=== PATIENT | female | born 1945 | race Caucasian/White ===

== ENCOUNTER 2017-10-20 08:33 | Inpatient (IN) | payer OTHER, MEDICARE ==
[2017-10-20] VITALS (7 sets, daily range): BP systolic 154–194; BP diastolic 72–113; PULSE 75–92; RESP 16–20; TEMP 97.3–98.2; O2SAT 97–100
[~2017-10-20] VITALS: Ht 157.5 cm; Wt 64.8 kg
--- NOTE | 2017-10-20 09:04 | PD ---
HPI Chief Complaint: Psychiatric Symptoms Time Seen by Provider: 09:01 Travel History International Travel<30 days: No Contact w/Intl Traveler<30days: No History of Present Illness HPI Patient 71-year-old female cabazon Liberian speaker does speak some Tuvaluan presents emergency department under Wong act. She is crying during exam and has some abrasions noted on her wrist. Patient does speak some Tuvaluan and I have attempted to communicate with her in Liberian as well and she switch back to Tuvaluan, she seems to not be willing to provide much history, she is crying on exam and states that she is feeling very sad and depressed and suicidal. She denies any physical complaints today, he has obvious abrasions noted on risk consistent with self injury pattern. History somewhat limited by language barrier and patient cooperation. She denied any pain anywhere else on her body. [facility] Past Medical History Narrative Medical Hypertension, headache, hypercholesterolemia, diabetes which is diet-controlled peer Past Surgical History Narrative Surgical Cholecystectomy Social History Alcohol Use: No Tobacco Use: No Substance Use: No Allergies-Medications (Allergen,Severity, Reaction): Coded Allergies: No Known Allergies (Unverified , 10/20/17) Reported Meds & Prescriptions Reported Meds & Active Scripts Active Reported Atorvastatin (Atorvastatin Calcium) 20 Mg Tab 20 Mg PO HS Lisinopril 20 Mg Tab 20 Mg PO DAILY Review of Systems Except as stated in HPI: all other systems reviewed are Neg Physical Exam Narrative GENERAL: Well-developed well-nourished, crying nontoxic appearing SKIN: Focused skin assessment warm/dry. Patient has serial superficial excoriations to the volar aspect of both wrists, no other abrasions lacerations or bruising seen on her person. HEAD: Atraumatic. Normocephalic. EYES: Pupils equal and round. No scleral icterus. No injection or drainage. ENT: No nasal bleeding or discharge. Mucous membranes pink and moist. NECK: Trachea midline. No JVD. CARDIOVASCULAR: Regular rate and rhythm. No murmur appreciated. RESPIRATORY: No accessory muscle use. Clear to auscultation. Breath sounds equal bilaterally. GASTROINTESTINAL: Abdomen soft, non-tender, nondistended. Hepatic and splenic margins not palpable. MUSCULOSKELETAL: No obvious deformities. No clubbing. No cyanosis. No edema. NEUROLOGICAL: Awake and alert. No obvious cranial nerve deficits. Motor grossly within normal limits. Normal speech. PSYCHIATRIC: Withdrawn, depressed mood, endorses suicidal ideation. Data Data Last Documented VS Vital Signs Date Time Temp Pulse Resp B/P (MAP) Pulse Ox O2 Delivery O2 Flow Rate FiO2 10/20/17 10:17 98.2 92 18 194/87 (122) 98 Room Air Orders Orders Complete Blood Count With Diff (10/20/17 09:01) Comprehensive Metabolic Panel (10/20/17 09:01) Thyroid Stimulating Hormone (10/20/17 09:01) Urinalysis - C+S If Indicated (10/20/17 09:01) Psych Screen (10/20/17 09:01) Drug Screen, Random Urine (10/20/17 09:01) Alcohol (Ethanol) (10/20/17 09:01) Tetanus/Diphtheria Tox Adult (Tetanus/Di (10/20/17 09:15) Diet Regular Basic (10/20/17 Lunch) Admit Order (Ed Use Only) (10/20/17 ) ^ Other Nursing Orders (10/20/17 13:36) Atorvastatin (Lipitor) (10/20/17 21:00) Lisinopril (Prinivil) (10/21/17 09:00) Labs Laboratory Tests Test 10/20/17 09:11 10/20/17 11:30 White Blood Count 6.1 TH/MM3 Red Blood Count 4.78 MIL/MM3 Hemoglobin 14.2 GM/DL Hematocrit 41.8 % Mean Corpuscular Volume 87.3 FL Mean Corpuscular Hemoglobin 29.7 PG Mean Corpuscular Hemoglobin Concent 34.1 % Red Cell Distribution Width 13.8 % Platelet Count 266 TH/MM3 Mean Platelet Volume 7.8 FL Neutrophils (%) (Auto) 76.2 % Lymphocytes (%) (Auto) 16.9 % Monocytes (%) (Auto) 5.9 % Eosinophils (%) (Auto) 0.7 % Basophils (%) (Auto) 0.3 % Neutrophils # (Auto) 4.6 TH/MM3 Lymphocytes # (Auto) 1.0 TH/MM3 Monocytes # (Auto) 0.4 TH/MM3 Eosinophils # (Auto) 0.0 TH/MM3 Basophils # (Auto) 0.0 TH/MM3 CBC Comment DIFF FINAL Differential Comment Blood Urea Nitrogen 11 MG/DL Creatinine 0.75 MG/DL Random Glucose 121 MG/DL Total Protein 8.9 GM/DL Albumin 4.2 GM/DL Calcium Level 9.8 MG/DL Alkaline Phosphatase 116 U/L Aspartate Amino Transf (AST/SGOT) 20 U/L Alanine Aminotransferase (ALT/SGPT) 34 U/L Total Bilirubin 0.4 MG/DL Sodium Level 136 MEQ/L Potassium Level 4.2 MEQ/L Chloride Level 99 MEQ/L Carbon Dioxide Level 29.5 MEQ/L Anion Gap 8 MEQ/L Estimat Glomerular Filtration Rate 76 ML/MIN Thyroid Stimulating Hormone 3rd Gen 0.638 uIU/ML Ethyl Alcohol Level LESS THAN 3 MG/DL Urine Color YELLOW Urine Turbidity CLEAR Urine pH 7.0 Urine Specific [place] 1.014 Urine Protein NEG mg/dL Urine Glucose (UA) NEG mg/dL Urine Ketones NEG mg/dL Urine Occult Blood SMALL Urine Nitrite NEG Urine Bilirubin NEG Urine Urobilinogen LESS THAN 2.0 MG/DL Urine Leukocyte Esterase NEG Urine RBC 11 /hpf Urine WBC 2 /hpf Urine Squamous Epithelial Cells 1 /hpf Microscopic Urinalysis Comment CULT NOT INDICATED Urine Opiates Screen NEG Urine Barbiturates Screen NEG Urine Amphetamines Screen NEG Urine Benzodiazepines Screen NEG Urine Cocaine Screen NEG Urine Cannabinoids Screen NEG MDM Medical Decision Making Medical Screen Exam Complete: Yes Emergency Medical Condition: Yes Differential Diagnosis Suicidal ideation, self-injurious pattern, acute medical emergency highly unlikely peer Narrative Course Patient medically cleared for psychiatric evaluation, likely will require admission. While she is in the emergency department I will continue to follow to see if her UA is positive, Given the Wong act and the patient's affect I think it is very likely that she needs to be admitted to the hospital, this was discussed with psychiatric screener Hannah. Likely will be placed in 2600. Her basic labs been reviewed and negative, UA does show small amount of hematuria which can be worked up as an outpatient. Otherwise she is medically stable for psychiatric admission. Diagnosis Primary Impression: Adjustment disorder with mixed disturbance of emotions and conduct Admitting Information Admitting Physician Requests: Admit Condition: Stable Víctor Llamas MD October 20, 2017 09:04
[2017-10-20] MEDS ORDERED: TETANUS/DIPHTHERIA TOXOID ADULT 0.5 ML VIAL IM ONE (09:15)
[2017-10-20] MEDS ORDERED: LISI-515 PO (11:02)
[2017-10-20 11:16] LABS: AUTOMATED NEUTROPHIL # 4.6 TH/MM3 (1.8-7.7); BASOPHIL % 0.3 % (0.0-2.0); EOSINOPHIL % 0.7 % (0.0-4.0); HEMATOCRIT 41.8 % (35.0-46.0); HEMOGLOBIN 14.2 GM/DL (11.6-15.3); LYMPH % 16.9 % (9.0-44.0); MEAN CELL VOLUME 87.3 FL (80.0-100.0); MEAN CORPUSCULAR HEMOGLOBIN 29.7 PG (27.0-34.0); MEAN CORPUSCULAR HGB CONC 34.1 % (32.0-36.0); MEAN PLATELET VOLUME 7.8 FL (7.0-11.0); MONO % 5.9 % (0.0-8.0); MONOCYTE # 0.4 TH/MM3 (0-0.9); NEUT % 76.2 % (16.0-70.0); PLATELET COUNT 266 TH/MM3 (150-450); RED BLOOD COUNT 4.78 MIL/MM3 (4.00-5.30); RED CELL DISTRIBUTION WIDTH 13.8 % (11.6-17.2); WHITE BLOOD COUNT 6.1 TH/MM3 (4.0-11.0)
[2017-10-20 11:37] LABS: ALBUMIN 4.2 GM/DL (3.4-5.0); AST (GOT) 20 U/L (15-37); BICARBONATE 29.5 MEQ/L (21.0-32.0); BLOOD UREA NITROGEN 11 MG/DL (7-18); CALCIUM 9.8 MG/DL (8.5-10.1); CHLORIDE 99 MEQ/L (98-107); CREATININE 0.75 MG/DL (0.50-1.00); GLOMERULAR FILTRATION RATE 76 ML/MIN (>89); GLUCOSE,RANDOM 121 MG/DL (74-106); SODIUM (NA) 136 MEQ/L (136-145)
[2017-10-20 11:38] LABS: ALT (GPT) 34 U/L (10-53)
[2017-10-20 11:47] LABS: ALKALINE PHOSPHATASE 116 U/L (45-117); TOTAL BILIRUBIN ADULT 0.4 MG/DL (0.2-1.0); TOTAL PROTEIN 8.9 GM/DL (6.4-8.2)
[2017-10-20 12:28] LABS: BILIRUBIN, URINE NEG (NEG); BLOOD, URINE SMALL (NEG); GLUCOSE,URINE NEG (NEG); KETONE, URINE NEG (NEG); NITRITE,URINE NEG (NEG); SQUAMOUS EPITHELIAL CELL URINE 1 /hpf (0-5); URINE COLOR YELLOW (YELLW/STRAW); URINE LEUKOCYTE ESTERASE NEG (NEG)
[2017-10-20] MEDS ORDERED: ATOR20TA15 PO (13:10)
[2017-10-20] MEDS ORDERED: METH2.5T PO (13:15)
--- NOTE | 2017-10-20 13:51 | HHI.HP ---
Provisional Diagnosis Admission Date October 20, 2017 at 13:37 [place]. 1. Adjustment disorder with mixed disturbance of emotions and conduct [place]. Deferred Certification of Person's Competence To Provide Express and Informed Consent I have personally examined Connie Jones , a person being served at [facility] on, October 20, 2017 13:41. Express and informed consent means consent voluntarily given in writing, by a competent person, after sufficient explanation and disclosure of the subject matter involved to enable the person to make a knowing and willful decision without any element of force, fraud, deceit, duress, or other form of constraint or coercion. This person is 18 years of age or older, is not now known to be incompetent to consent to treatment with a guardian advocate, and does not have a health care surrogate or proxy currently making medical treatment decisions. I have found this person to be one of the following: [x] Competent to provide express and informed consent, as defined above, for voluntary admission to this facility and is competent to provide express and informed consent for treatment. He/she has the consistent capacity to make well reasoned, willful, and knowing decisions concerning his or her medical or mental health treatment. The person fully and consistently understands the purpose of the admission for examination/placement and is fully capable of personally exercising all rights assured [place] Incompetent to provide express and informed consent to voluntary admission, and this is incompetent to provide express and informed consent to treatment. The person must be transferred to involuntary status and a petition for a guardian advocate filed with the Circuit Court. [] Refusing to provide express and informed consent to voluntary admission but is competent to provide express and informed consent for treatment. The person must be discharged or transferred to involuntary status. Form shall be completed within 24 hours of a person's arrival at the receiving facility and filed in the clinical record of each person: 1. Admitted on a voluntary basis 2. Permitted to provide express and informed consent to his/her own treatment 3. Allowed to transfer from involuntary to voluntary status 4. Prior to permitting a person to consent to his or her own treatment after having been previously found incompetent to consent to treatment. History of Present Illness Capacity: Has Capacity Psych Chief Complaint: Self-injurious behavior HPI Ms. Jones is a 71-year-old female with no known past psychiatric history who presents under a Wong act by [facility]'s office alleging that the patient sustained self-inflicted lacerations on her bilateral wrists. Patient allegedly told the officer that she wanted to . Reviewing the electronic medical record, it appears this is patient's first visit to [facility]. Patient seen and examined. Chart reviewed. Case discussed with nursing staff. On my examination today, the patient relates that she self injured because "I wanted to ." Main stressor appears to be conflict with her [id number]. Apparently, some youthful indiscretion by the patient was discovered by [id number] who has been using it against the patient by spreading it amongst the family. Patient denies any ongoing suicidal ideation presently, although it is unclear whether she is reliable to contract for safety. She denies any low mood, denies any anhedonia, denies any associated depressive symptoms except she does say that her sleep and appetite are poor. Affect is somewhat dysphoric, and I wonder if the patient is under reporting symptoms. I can elicit no hypomanic or manic symptoms. She denies any audiovisual hallucinations, and I can elicit no delusional material. Remainder of the psychiatric ROS is negative. No acute physical complaints. Past psychiatric history: Patient denies a history of psychiatric diagnosis. She denies a history of inpatient or outpatient psychiatric treatment. She denies a history of suicide attempts. Family history: Patient denies any family history of mental illness or suicide. Chemical dependency history: Patient denies any abuse of drugs or alcohol. Social history: Patient lives with her . She has a son and grandchildren. She has 8 grade education. 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 She denies any history. Denies any legal history. Denies any access to guns or firearms. Somewhat spiritism. Denies any history of abuse or mistreatment. Review of Systems Except as stated in HPI: all other systems reviewed are Neg Past Family Social History Coded Allergies: No Known Allergies (Unverified , 10/20/17) Past Medical History Patient reports a history of rheumatoid arthritis, hypertension and seasonal allergies Reported Medications Atorvastatin (Atorvastatin) 20 Mg Tab, 20 MG PO HS for Cholesterol Management, # 30 TAB 0 Refills 10/20/17 Lisinopril (Lisinopril) 20 Mg Tab, 20 MG PO DAILY, #30 TAB 0 Refills 10/20/17 Discontinued Reported Medications Methotrexate (Methotrexate) 2.5 Mg Tab, 2.5 MG PO Q7D, TAB 0 Refills 10/20/17 Nurse has obtained medication list from patient's pharmacy. Patient takes: Methotrexate 15 mg once weekly on Mondays, last one week ago Lisinopril 20 mg daily Atorvastatin 20 mg at bedtime Patient's Strengths (min. 2) In a monitored setting. Verbally fluent. Physical Exam Physical examination completed by ED provider. On my examination today, the patient appears to be in no acute physical distress. No motor abnormalities noted. I do note multiple superficial lacerations on anterior aspect bilateral wrists as well as further superficial lacerations on the dorsum of the right hand only. Labs and vital signs reviewed: Vital Signs Vital Signs Date Time Temp Pulse Resp B/P (MAP) Pulse Ox O2 Delivery O2 Flow Rate FiO2 10/20/17 10:17 98.2 92 18 194/87 (122) 98 Room Air I/O 10/20/17 10/20/17 10/21/17 08:00 16:00 00:00 Intake Total 240 ml Balance 240 ml Lab Results Test 10/20/17 09:11 10/20/17 11:30 White Blood Count 6.1 TH/MM3 Red Blood Count 4.78 MIL/MM3 Hemoglobin 14.2 GM/DL Hematocrit 41.8 % Mean Corpuscular Volume 87.3 FL Mean Corpuscular Hemoglobin 29.7 PG Mean Corpuscular Hemoglobin Concent 34.1 % Red Cell Distribution Width 13.8 % Platelet Count 266 TH/MM3 Mean Platelet Volume 7.8 FL Neutrophils (%) (Auto) 76.2 % Lymphocytes (%) (Auto) 16.9 % Monocytes (%) (Auto) 5.9 % Eosinophils (%) (Auto) 0.7 % Basophils (%) (Auto) 0.3 % Neutrophils # (Auto) 4.6 TH/MM3 Lymphocytes # (Auto) 1.0 TH/MM3 Monocytes # (Auto) 0.4 TH/MM3 Eosinophils # (Auto) 0.0 TH/MM3 Basophils # (Auto) 0.0 TH/MM3 CBC Comment DIFF FINAL Differential Comment Blood Urea Nitrogen 11 MG/DL Creatinine 0.75 MG/DL Random Glucose 121 MG/DL Total Protein 8.9 GM/DL Albumin 4.2 GM/DL Calcium Level 9.8 MG/DL Alkaline Phosphatase 116 U/L Aspartate Amino Transf (AST/SGOT) 20 U/L Alanine Aminotransferase (ALT/SGPT) 34 U/L Total Bilirubin 0.4 MG/DL Sodium Level 136 MEQ/L Potassium Level 4.2 MEQ/L Chloride Level 99 MEQ/L Carbon Dioxide Level 29.5 MEQ/L Anion Gap 8 MEQ/L Estimat Glomerular Filtration Rate 76 ML/MIN Thyroid Stimulating Hormone 3rd Gen 0.638 uIU/ML Ethyl Alcohol Level LESS THAN 3 MG/DL Urine Color YELLOW Urine Turbidity CLEAR Urine pH 7.0 Urine Specific [place] 1.014 Urine Protein NEG mg/dL Urine Glucose (UA) NEG mg/dL Urine Ketones NEG mg/dL Urine Occult Blood SMALL Urine Nitrite NEG Urine Bilirubin NEG Urine Urobilinogen LESS THAN 2.0 MG/DL Urine Leukocyte Esterase NEG Urine RBC 11 /hpf Urine WBC 2 /hpf Urine Squamous Epithelial Cells 1 /hpf Microscopic Urinalysis Comment CULT NOT INDICATED Urine Opiates Screen NEG Urine Barbiturates Screen NEG Urine Amphetamines Screen NEG Urine Benzodiazepines Screen NEG Urine Cocaine Screen NEG Urine Cannabinoids Screen NEG Mildly decreased GFR noted. Urinalysis bland. Mental Status Examination Appearance: Appropriate Consciousness: Alert Orientation: x4 Motor Activity: Normal gait Speech: Unremarkable Language: Adequate Fund of Knowledge: Adequate Attention and Concentration: Adequate Memory: Unremarkable Mood: Other (Denies issues with mood) Affect: Other (Somewhat dysphoric) Thought Process & Associations: Intact, Logical, Linear Thought Content: Appropriate Hallucination Type: None Delusion Type: None Suicidal Ideation: No (Denies SI now but admits to recent suicidal self injury) Suicidal Plan: No Suicidal Intention: No Homicidal Ideation: No Homicidal Plan: No Homicidal Intention: No Insight: Fair Judgment: Impulsive Assessment & Plan Problem List: (1) Adjustment disorder with mixed disturbance of emotions and conduct ICD Codes: F43.25 - Adjustment disorder with mixed disturbance of emotions and conduct Assessment & Plan 71-year-old female with no known past psychiatric history who presents under a Wong act by law enforcement after engaging in suicidal self-injurious behavior. On my examination today, the patient reports that she cut herself with the intent to because of conflict with her [id number]. She denies depressive symptoms besides poor sleep and poor appetite, but I do fear that she is under reporting the symptoms. Patient is unreliable to contract for safety presently in my estimation, and I will admit her to the inpatient psychiatric unit for safety, observation and stabilization. Admit inpatient. Voluntary status. To target poor sleep, poor appetite and dysphoria initiate Remeron 15 mg at bedtime. Low-dose Atarax and Benadryl as needed for anxiety and sleep respectively. Continue methotrexate, statin and lisinopril. Blood pressure is somewhat elevated and I have ordered her a one- time dose of lisinopril now. BMP, hemoglobin A1c and lipid panel in the morning. Vitals every shift. Counselor to see. Collateral information. Disposition planning. Estimated length of stay: 3-5 days. Discharge Planning Pending outcome of observation Request HC Surrog/Guard Advoc?: No Sawyer Ohara MD October 20, 2017 13:51
[2017-10-20] MEDS ORDERED: MAGNESIUM HYDROXIDE SUSP 30 ML CUP PO PRN (14:00)
[2017-10-20] MEDS ORDERED: LISINOPRIL 20 MG TAB PO ONE (14:00)
[2017-10-20] MEDS ORDERED: NICOTINE 21 MG/24 HR PATCH T-DERMAL PRN (14:00)
[2017-10-20] MEDS ORDERED: ALUMINUM/MAGNESIUM/SIMETH 30 ML CUP PO PRN (14:00)
[2017-10-20] MEDS ORDERED: PILL SPLITTER OTHER PRN (14:00)
[2017-10-20] MEDS ORDERED: hydrOXYzine HCL 50 MG TAB PO PRN (14:00)
[2017-10-20] MEDS: BACITRACIN TOP OINT 15 GM TUBE TOPICAL SCH (21:00)
[2017-10-20] MEDS: MIRTAZAPINE 15 MG TAB PO SCH (21:05)
[2017-10-20] MEDS: ATORVASTATIN 20 MG TAB PO SCH (21:05)
[2017-10-20] MEDS: METHOTREXATE 2.5 MG TAB PO SCH (21:16)
[2017-10-20] MEDS: cloNIDine HCL 0.1 MG TAB PO PRN (23:29)
[2017-10-21 02:31] VITALS: BP 138/69; PULSE 63; RESP 18; TEMP 97.7; O2SAT 99
[2017-10-21 06:07] VITALS: BP 100/52; PULSE 61; RESP 16; TEMP 98.3; O2SAT 99
[2017-10-21 07:14] VITALS: BP 156/70; PULSE 95; RESP 20
[2017-10-21] MEDS: LISINOPRIL 20 MG TAB PO SCH (09:00)
[2017-10-21] MEDS: REMOVE OLD PATCH T-DERMAL SCH (09:00)
[2017-10-21] MEDS: BACITRACIN TOP OINT 15 GM TUBE TOPICAL SCH ×2 (09:00→21:00)
[2017-10-21] MEDS: ACETAMINOPHEN 325 MG TAB PO PRN ×2 (10:31→22:05)
[2017-10-21 11:00] VITALS: BP 109/53; PULSE 62; RESP 17
[2017-10-21 16:17] VITALS: BP 108/68; PULSE 86; RESP 18; TEMP 98.7; O2SAT 99
--- NOTE | 2017-10-21 18:43 | HHI.PYPN ---
Subjective Chief Complaint: Self-injurious behavior Remarks Patient seen for follow-up, chart reviewed.. Discussion nursing staff reported the patient was hostile yesterday fell twice today with no apparent injuries, mood has been better compliant with medications. Patient was found sitting hospital bed noted be somewhat irritable and superficially cooperative initially but began to be more engaging throughout interview. Patient states that she had been feeling depressed for the past 1-2 months due to family issues but would not elaborate at this time. Patient was noted to be tearful and crying at times during interview when speaking about this. Patient states that she had been having also decreased sleep, appetite, energy and concentration along with suicide ideation at the moment which she had attempted to hurt herself. Patient states that "something happened" referral to her family discord. She states on the day of she had injured herself and her to call police after she had found her having done this. Patient states that she had been having problems with her [id number] but would not elaborate further. Patient states at this time she is feeling "bad" denies any SI at this time, denies any HI, AVH or delusions. She states that she has had a history of depression in the past and has been on antidepressant and anxiety medications but was unable to recall them. She denies any previous psychiatric admissions or suicide attempts or self-injurious behavior previously. Review of Systems Except as stated in HPI: all other systems reviewed are Neg Mental Status Examination Appearance: Appropriate Consciousness: Alert Orientation: x4 Motor Activity: Normal gait Speech: Unremarkable Language: Adequate Fund of Knowledge: Adequate Attention and Concentration: Adequate Memory: Unremarkable Mood: Sad Affect: Sad, Other (Tearful and crying at times) Thought Process & Associations: Intact, Logical, Linear Thought Content: Appropriate Hallucination Type: None Delusion Type: None Suicidal Ideation: No (Denies SI now but admits to recent suicidal self injury) Suicidal Plan: No Suicidal Intention: No Homicidal Ideation: No Homicidal Plan: No Homicidal Intention: No Insight: Fair Judgment: Impulsive Results Vitals/IOs Vital Signs Date Time Temp Pulse Resp B/P (MAP) Pulse Ox O2 Delivery O2 Flow Rate FiO2 10/21/17 16:17 98.7 86 18 108/68 (81) 99 10/20/17 16:30 Room Air Intake and Output 10/21/17 10/21/17 10/22/17 08:00 16:00 00:00 Intake Total 240 ml 240 ml Balance 240 ml 240 ml Assessment & Plan Problem List: (1) Adjustment disorder with mixed disturbance of emotions and conduct ICD Codes: F43.25 - Adjustment disorder with mixed disturbance of emotions and conduct Assessment & Plan Patient this time continues her to endorse depressive symptoms, depressed mood but denying any suicide ideation at this time. Patient to continue Remeron 15 mg p.o. at bedtime for depression, we will continue monitor mood and behavior. Discharge planning in progress. Justification for Cont. Inpt. At risk of further decompensation a lower level of care. Discharge Planning Patient return back to her residence was psychiatrically stable. Request HC Surrog/Guard Advoc?: No Chase Castano MD October 21, 2017 18:43
[2017-10-21] MEDS: ATORVASTATIN 20 MG TAB PO SCH (21:58)
[2017-10-21] MEDS: MIRTAZAPINE 15 MG TAB PO SCH (21:58)
[2017-10-22 06:37] VITALS: BP 126/55; PULSE 61; RESP 17; TEMP 97.6; O2SAT 99
[2017-10-22] MEDS: LISINOPRIL 20 MG TAB PO SCH (08:48)
[2017-10-22] MEDS: REMOVE OLD PATCH T-DERMAL SCH (09:00)
[2017-10-22] MEDS: BACITRACIN TOP OINT 15 GM TUBE TOPICAL SCH ×2 (09:00→20:28)
--- NOTE | 2017-10-22 17:45 | HHI.PYPN ---
Subjective Chief Complaint: Self-injurious behavior Remarks Patient seen for follow, chart reviewed. Discussion nursing staff reported patient anxious about her clothing and was noted to have overwhelming reaction when worried about this. Patient was found in day room noted B, cooperative. Patient states that she had visited by granddaughter which was a general visit but did not speak about anything specific. Patient reports having difficulty with sleep last evening but was reminded that she has medications on an as- needed basis to assist with insomnia which she acknowledged. Patient reports eating and drinking well with no difficulty or bowel movement. Patient states that her mood has been "bad" but would not elaborate on the reasons that had led to her recent suicide attempt. Patient was encouraged to elaborate on the reason that had contributed to her ongoing depression recently. Patient states that she is okay with being home with her although triggering factor to her recent suicide attempt was involving other family members which she did not want to elaborate on. Patient states that she will be visited by her later today. Patient noted to be somewhat reluctant to engage into the reasons that led to her suicide attempt. Patient noted to be tearful at times. Review of Systems Except as stated in HPI: all other systems reviewed are Neg Mental Status Examination Appearance: Appropriate Consciousness: Alert Orientation: x4 Motor Activity: Normal gait Speech: Unremarkable Language: Adequate Fund of Knowledge: Adequate Attention and Concentration: Adequate Memory: Unremarkable Mood: Sad Affect: Sad, Other (Tearful at times) Thought Process & Associations: Intact, Logical, Linear Thought Content: Appropriate Hallucination Type: None Delusion Type: None Suicidal Ideation: No (Denies SI now but admits to recent suicidal self injury) Suicidal Plan: No Suicidal Intention: No Homicidal Ideation: No Homicidal Plan: No Homicidal Intention: No Insight: Fair Judgment: Impulsive Results Vitals/IOs Vital Signs Date Time Temp Pulse Resp B/P (MAP) Pulse Ox O2 Delivery O2 Flow Rate FiO2 10/22/17 06:37 97.6 61 17 126/55 (78) 99 10/20/17 16:30 Room Air Assessment & Plan Problem List: (1) Adjustment disorder with mixed disturbance of emotions and conduct ICD Codes: F43.25 - Adjustment disorder with mixed disturbance of emotions and conduct Assessment & Plan Patient this time continues report feeling depressed, reluctant to engage in to what had led to her suicide attempt. Patient reported difficulty with sleep but has as needed medications to assist with that. We will increase mirtazapine to 30 mg p.o. at bedtime for depression. We will continue monitor mood and behavior. Discharge planning in progress. Justification for Cont. Inpt. At risk of further decompensation a lower level of care. Discharge Planning Patient return back to her residence when psychiatrically stable. Request HC Surrog/Guard Advoc?: No Chase Castano MD October 22, 2017 17:45
[2017-10-22 17:54] VITALS: BP 154/76; PULSE 88; RESP 16; TEMP 97.8; O2SAT 98
[2017-10-22 20:10] VITALS: BP 197/82; PULSE 82; RESP 18
[2017-10-22] MEDS: ATORVASTATIN 20 MG TAB PO SCH (20:27)
[2017-10-22] MEDS: MIRTAZAPINE 15 MG TAB PO SCH (20:27)
[2017-10-22] MEDS: cloNIDine HCL 0.1 MG TAB PO PRN (20:28)
[2017-10-22] MEDS: ACETAMINOPHEN 325 MG TAB PO PRN (20:28)
[2017-10-22 23:19] VITALS: BP 183/74; PULSE 71; RESP 18
[2017-10-22] MEDS: diphenhydrAMINE HCL 25 MG CAP PO PRN (23:19)
[2017-10-23] MEDS: ACETAMINOPHEN 325 MG TAB PO PRN (03:54)
[2017-10-23 06:20] VITALS: BP 208/88; PULSE 80; RESP 16; TEMP 98.1; O2SAT 98
[2017-10-23 06:35] VITALS: BP 175/70; PULSE 80
[2017-10-23 06:52] VITALS: BP 128/78; PULSE 70; RESP 18
[2017-10-23] MEDS: LISINOPRIL 20 MG TAB PO SCH (08:38)
[2017-10-23] MEDS: REMOVE OLD PATCH T-DERMAL SCH (08:39)
[2017-10-23] MEDS: BACITRACIN TOP OINT 15 GM TUBE TOPICAL SCH ×2 (09:00→21:00)
[2017-10-23] MEDS: QUEtiapine FUMARATE 25 MG TAB PO SCH ×2 (15:42→20:56)
--- NOTE | 2017-10-23 16:55 | HHI.PYPN ---
Subjective Chief Complaint: Self-injurious behavior Remarks Patient seen for follow, chart reviewed. Discussion nursing staff reported the patient had difficulty sleeping last evening noted episodes of crying interval was of increased anxiety last evening. Patient was found ambulating noted to be hypervigilant today and paranoid. Patient states she is feeling "bad", initially refusing to elaborate on stressor prior to admission that cause her self-harm but later requesting to speak with policy writer again and spoke about her perseveration belief that her [id number] is a cause of her stress as she states had never gotten along with her and believe that she called the police to have her arrested to bring her to the hospital. Patient also noted to be very paranoid with staff believing that the nurses also plotting against her and noted to be paranoid to documents and papers I had in my hand. Time was spent to explain how police procedure liberating patients with recent suicide attempts of self-harm in handcuffs to the hospital but she continued to believe that it was her [id number] who had called to get her arrested. She was clarified that she is under no legal trouble but had difficulty believing this. Discussion about starting quetiapine was reviewed with the patient and she agreed to start this treatment. Review of Systems Except as stated in HPI: all other systems reviewed are Neg Mental Status Examination Appearance: Appropriate Consciousness: Alert Orientation: x4 Motor Activity: Normal gait Speech: Unremarkable Language: Adequate Fund of Knowledge: Adequate Attention and Concentration: Adequate Memory: Unremarkable Mood: Appropriate Affect: Appropriate, Other (Tearful at times) Thought Process & Associations: Intact, Logical, Linear Thought Content: Appropriate Hallucination Type: None Delusion Type: Paranoid Suicidal Ideation: No (Denies SI now but admits to recent suicidal self injury) Suicidal Plan: No Suicidal Intention: No Homicidal Ideation: No Homicidal Plan: No Homicidal Intention: No Insight: Fair Judgment: Impulsive Results Vitals/IOs Vital Signs Date Time Temp Pulse Resp B/P (MAP) Pulse Ox O2 Delivery O2 Flow Rate FiO2 10/23/17 06:52 70 18 128/78 (95) 10/23/17 06:20 98.1 98 10/20/17 16:30 Room Air Assessment & Plan Problem List: (1) Adjustment disorder with mixed disturbance of emotions and conduct ICD Codes: F43.25 - Adjustment disorder with mixed disturbance of emotions and conduct Assessment & Plan Patient at this time continues to report feeling depressed tearful at times during interview noted to be's slightly disorganized and anxious and endorsing paranoid delusions surrounding her granddaughter. We will start quetiapine 12.5 mg p.o. twice daily for paranoia and continue mirtazapine 30 mg p.o. at bedtime. Continue monitor mood and behavior. Discharge planning in progress. Justification for Cont. Inpt. At risk of further decompensation a lower level of care. Discharge Planning Patient return back to her residence was psychiatrically stable. Request HC Surrog/Guard Advoc?: No Chase Castano MD October 23, 2017 16:55
[2017-10-23 17:51] VITALS: BP 126/66; PULSE 95; RESP 17; TEMP 97.1; O2SAT 98
[2017-10-23] MEDS: MIRTAZAPINE 15 MG TAB PO SCH (20:56)
[2017-10-23] MEDS: ATORVASTATIN 20 MG TAB PO SCH (20:57)
[2017-10-24 05:26] VITALS: BP 125/60; PULSE 67; RESP 16; TEMP 97.6; O2SAT 96
[2017-10-24] MEDS: LISINOPRIL 20 MG TAB PO SCH (08:26)
[2017-10-24] MEDS: BACITRACIN TOP OINT 15 GM TUBE TOPICAL SCH ×2 (08:29→21:24)
[2017-10-24] MEDS: QUEtiapine FUMARATE 25 MG TAB PO SCH ×2 (08:30→21:18)
[2017-10-24] MEDS: REMOVE OLD PATCH T-DERMAL SCH (08:32)
[2017-10-24] MEDS: ACETAMINOPHEN 325 MG TAB PO PRN (16:10)
[2017-10-24 16:54] VITALS: BP 157/69; PULSE 92; RESP 16; TEMP 98.4; O2SAT 98
--- NOTE | 2017-10-24 18:21 | HHI.PYPN ---
Subjective Chief Complaint: Self-injurious behavior Remarks Patient seen for follow-up, chart reviewed. Discussion with nursing staff reported that the patient continues with flat affect, depressed with vague SI, slept on and off, suspicious with her medications, paranoid. Patient was found ambulating on the unit, appears hypervigilant. She continues to perseverate that her daughter in law is the cause of her being "arrested by the police" and noted to be tearful at times. She states that something happened but would not elaborate and mentions that soon she will talk about it. She denies any SI at this time. Review of Systems Except as stated in HPI: all other systems reviewed are Neg Mental Status Examination Appearance: Appropriate Consciousness: Alert Orientation: x4 Motor Activity: Normal gait Speech: Unremarkable Language: Adequate Fund of Knowledge: Adequate Attention and Concentration: Adequate Memory: Unremarkable Mood: Appropriate Affect: Appropriate, Other (Tearful at times) Thought Process & Associations: Intact, Logical, Linear Thought Content: Appropriate Hallucination Type: None Delusion Type: Paranoid Suicidal Ideation: No (Denies SI now but admits to recent suicidal self injury) Suicidal Plan: No Suicidal Intention: No Homicidal Ideation: No Homicidal Plan: No Homicidal Intention: No Insight: Fair Judgment: Impulsive Results Vitals/IOs Vital Signs Date Time Temp Pulse Resp B/P (MAP) Pulse Ox O2 Delivery O2 Flow Rate FiO2 10/24/17 16:54 98.4 92 16 157/69 (98) 98 10/20/17 16:30 Room Air Intake and Output 10/24/17 10/24/17 10/25/17 08:00 16:00 00:00 Intake Total 360 ml 480 ml Balance 360 ml 480 ml Assessment & Plan Problem List: (1) Adjustment disorder with mixed disturbance of emotions and conduct ICD Codes: F43.25 - Adjustment disorder with mixed disturbance of emotions and conduct Assessment & Plan Patient continues with depressed mood, paranoia, perseveration of persecution from her daughter in law. Increase quetiapine to 25mg PO BID, continue rest of medications. Continue to monitor mood and behavior. Discharge planning in progress. Justification for Cont. Inpt. At risk for further decompensation at lower level of care. Discharge Planning Return back to her residence when psychiatrically stable. Request HC Surrog/Guard Advoc?: Chase Dill MD Oct 24, 2017 18:21
[2017-10-24] MEDS: MIRTAZAPINE 15 MG TAB PO SCH (21:00)
[2017-10-24] MEDS: ATORVASTATIN 20 MG TAB PO SCH (21:17)
[2017-10-25 06:00] VITALS: BP 124/60; PULSE 72; RESP 16; TEMP 98.3; O2SAT 97
[2017-10-25 08:38] LABS: BICARBONATE 25.5 MEQ/L (21.0-32.0); BLOOD UREA NITROGEN 16 MG/DL (7-18); CHLORIDE 102 MEQ/L (98-107); CREATININE 0.74 MG/DL (0.50-1.00); GLOMERULAR FILTRATION RATE 77 ML/MIN (>89); GLUCOSE,RANDOM 114 MG/DL (74-106); SODIUM (NA) 138 MEQ/L (136-145)
[2017-10-25 08:40] LABS: CHOLESTEROL 162 MG/DL (120-200); TRIGLYCERIDES 129 MG/DL (42-150)
[2017-10-25 08:41] LABS: LDL CHOLESTEROL 59 MG/DL (0-99)
[2017-10-25] MEDS: REMOVE OLD PATCH T-DERMAL SCH (08:54)
[2017-10-25] MEDS: LISINOPRIL 20 MG TAB PO SCH (08:54)
[2017-10-25] MEDS: BACITRACIN TOP OINT 15 GM TUBE TOPICAL SCH ×2 (08:54→20:20)
[2017-10-25] MEDS: QUEtiapine FUMARATE 25 MG TAB PO SCH ×3 (08:54→21:00)
--- NOTE | 2017-10-25 13:45 | HHI.PYPN ---
Subjective Chief Complaint: Self-injurious behavior Remarks Patient was seen and case discussed with nursing. Throughout the day, patient is labile and irritable. She was tearful this morning per nursing and remains tearful for my interview. She has poor insight into her admission and cannot give me any clear history for why she slit her wrists. She is focused on discharge. Today, she says she denies suicidal or homicidal ideation intent or plan. Mental Status Examination Appearance: Appropriate Consciousness: Alert Orientation: x4 Motor Activity: Normal gait Speech: Unremarkable Language: Adequate Fund of Knowledge: Adequate Attention and Concentration: Adequate Memory: Unremarkable Mood: Anxious Affect: Irritable, Labile, Other (Tearful at times) Thought Process & Associations: Intact, Logical, Linear Thought Content: Appropriate Hallucination Type: None Delusion Type: Paranoid Suicidal Ideation: No (Denies SI now but admits to recent suicidal self injury) Suicidal Plan: No Suicidal Intention: No Homicidal Ideation: No Homicidal Plan: No Homicidal Intention: No Insight: Fair Judgment: Impulsive Results Labs Test 10/25/17 07:10 Blood Urea Nitrogen 16 MG/DL Creatinine 0.74 MG/DL Random Glucose 114 MG/DL Calcium Level 9.0 MG/DL Sodium Level 138 MEQ/L Potassium Level 3.9 MEQ/L Chloride Level 102 MEQ/L Carbon Dioxide Level 25.5 MEQ/L Anion Gap 11 MEQ/L Estimat Glomerular Filtration Rate 77 ML/MIN Triglycerides Level 129 MG/DL Cholesterol Level 162 MG/DL LDL Cholesterol 59 MG/DL HDL Cholesterol 77.0 MG/DL Cholesterol/HDL Ratio 2.10 RATIO Vitals/IOs Vital Signs Date Time Temp Pulse Resp B/P (MAP) Pulse Ox O2 Delivery O2 Flow Rate FiO2 10/25/17 06:00 98.3 72 16 124/60 (81) 97 Intake and Output 10/25/17 10/25/17 10/26/17 08:00 16:00 00:00 Intake Total 150 ml Balance 150 ml Assessment & Plan Problem List: (1) Adjustment disorder with mixed disturbance of emotions and conduct ICD Codes: F43.25 - Adjustment disorder with mixed disturbance of emotions and conduct Assessment & Plan Continue current treatment plan Justification for Cont. Inpt. Patient would decompensate in a less restrictive setting Request HC Surrog/Guard Advoc?: No Amos Warren DO Oct 25, 2017 13:45
[2017-10-25 18:09] VITALS: BP 184/72; PULSE 80; RESP 16; TEMP 97.8; O2SAT 98
[2017-10-25] MEDS: cloNIDine HCL 0.1 MG TAB PO PRN (18:26)
[2017-10-25] MEDS: ATORVASTATIN 20 MG TAB PO SCH (20:19)
[2017-10-25] MEDS: MIRTAZAPINE 15 MG TAB PO SCH (20:19)
[2017-10-26 05:34] VITALS: BP 157/74; PULSE 68; RESP 16; TEMP 97.9; O2SAT 99
--- NOTE | 2017-10-26 08:36 | HHI.PYPN ---
Subjective Chief Complaint: Self-injurious behavior Remarks Patient was seen and case discussed with nursing. Patient remains focused on discharge. She minimizes her cutting and says it was all because of "anxiety." Patient denies suicidal ideation saying that she has her family to live for. Less labile today. Talking to her family on the phone. Tolerating her medications well. Though somewhat oppositional at night with her Seroquel Mental Status Examination Appearance: Appropriate Consciousness: Alert Orientation: x4 Motor Activity: Normal gait Speech: Unremarkable Language: Adequate Fund of Knowledge: Adequate Attention and Concentration: Adequate Memory: Unremarkable Mood: Anxious Affect: Irritable, Labile, Other (Tearful at times) Thought Process & Associations: Intact, Logical, Linear Thought Content: Appropriate Hallucination Type: None Delusion Type: Paranoid Suicidal Ideation: No (Denies SI now but admits to recent suicidal self injury) Suicidal Plan: No Suicidal Intention: No Homicidal Ideation: No Homicidal Plan: No Homicidal Intention: No Insight: Fair Judgment: Impulsive Results Vitals/IOs Vital Signs Date Time Temp Pulse Resp B/P (MAP) Pulse Ox O2 Delivery O2 Flow Rate FiO2 10/26/17 05:34 97.9 68 16 157/74 (101) 99 Intake and Output 10/26/17 10/26/17 10/27/17 08:00 16:00 00:00 Intake Total 360 ml Balance 360 ml Assessment & Plan Problem List: (1) Adjustment disorder with mixed disturbance of emotions and conduct ICD Codes: F43.25 - Adjustment disorder with mixed disturbance of emotions and conduct Assessment & Plan Continue current treatment plan Justification for Cont. Inpt. Patient would decompensate in a less restrictive setting Request HC Surrog/Guard Advoc?: No Amos Warren DO Oct 26, 2017 08:36
--- NOTE | 2017-10-26 08:53 | EKG ---
Date Performed: 10/24/2017 Time Performed: 20:18:39 PTAGE: 71 years EKG: Sinus rhythm NORMAL ECG NO PREVIOUS TRACING DOCTOR: Nagi Whitaker Interpretating Date/Time 10/26/2017 08:52:21
[2017-10-26] MEDS: REMOVE OLD PATCH T-DERMAL SCH (09:00)
[2017-10-26] MEDS: QUEtiapine FUMARATE 25 MG TAB PO SCH ×3 (09:00→20:17)
[2017-10-26] MEDS: LISINOPRIL 20 MG TAB PO SCH ×2 (09:00→09:25)
[2017-10-26] MEDS: BACITRACIN TOP OINT 15 GM TUBE TOPICAL SCH ×2 (09:25→20:16)
[2017-10-26] MEDS: ACETAMINOPHEN 325 MG TAB PO PRN (13:00)
[2017-10-26 17:13] VITALS: BP 144/75; PULSE 76; RESP 17; TEMP 98.2; O2SAT 99
[2017-10-26] MEDS: MIRTAZAPINE 15 MG TAB PO SCH (20:17)
[2017-10-26] MEDS: ATORVASTATIN 20 MG TAB PO SCH (20:17)
[2017-10-27 06:13] VITALS: BP 140/63; PULSE 74; RESP 16; TEMP 98.1; O2SAT 98
[2017-10-27] MEDS: LISINOPRIL 20 MG TAB PO SCH (08:53)
[2017-10-27] MEDS: ACETAMINOPHEN 325 MG TAB PO PRN (08:53)
[2017-10-27] MEDS: QUEtiapine FUMARATE 25 MG TAB PO SCH ×2 (08:53→21:28)
[2017-10-27] MEDS: BACITRACIN TOP OINT 15 GM TUBE TOPICAL SCH ×2 (09:00→21:00)
[2017-10-27] MEDS: REMOVE OLD PATCH T-DERMAL SCH (09:00)
[2017-10-27] MEDS: METHOTREXATE 2.5 MG TAB PO SCH (14:49)
[2017-10-27] MEDS: ARTIFICIAL TEARS OPTH SOLN 15 ML BTL EACH EYE PRN (16:16)
--- NOTE | 2017-10-27 18:11 | HHI.PYPN ---
Subjective Chief Complaint: Self-injurious behavior Remarks Patient seen for follow, chart reviewed. Discussion nursing staff reported the patient continues to be somatic complaints as well as noted to be appearing to be falling when staff is around although patient's vitals have been stable with no evidence of orthostatic hypotension. Patient was found standing in the hallway for sometime awaiting to attend groups and when creative writer approached patient patient appeared to be falling backwards but allowed creative writer to catch her prior to her following and was directed back to her room for interview. Patient states that she is feeling dizzy with medications although provided to her vitals have been stable and patient had not endorsed adequate fluid intake throughout the day. Patient was noted to continue to have some lability during interview with feeling upset and tearful about being in the hospital but also refusing to elaborate on stressor that led to her recent suicide attempt. She states having been visited by her and her sister over the weekend which she said went "okay" and when asked if treatment team can include her family into her current care as well as discharge planning she refuses to allow consent for them to be involved. Patient also does not elaborate why she does not family to be involved in her outpatient care which is concerning due to her current depressed/anxious presentation although denying any active suicide ideations at this time. Patient was advised to have support involved in her care continues to allow permission to treatment team to involve her family at this time. Patient noted to be somewhat less paranoid now compared to few days ago. Patient attending groups. Review of Systems Except as stated in HPI: all other systems reviewed are Neg Mental Status Examination Appearance: Appropriate Consciousness: Alert Orientation: x4 Motor Activity: Normal gait Speech: Unremarkable Language: Adequate Fund of Knowledge: Adequate Attention and Concentration: Adequate Memory: Unremarkable Mood: Anxious Affect: Irritable, Sad, Labile, Anxious, Other (Tearful at times) Thought Process & Associations: Intact, Logical, Linear Thought Content: Appropriate Hallucination Type: None Delusion Type: Paranoid (Lessening) Suicidal Ideation: No Suicidal Plan: No Suicidal Intention: No Homicidal Ideation: No Homicidal Plan: No Homicidal Intention: No Insight: Fair Judgment: Impulsive Results Vitals/IOs Vital Signs Date Time Temp Pulse Resp B/P (MAP) Pulse Ox O2 Delivery O2 Flow Rate FiO2 10/27/17 06:13 98.1 74 16 140/63 (88) 98 Intake and Output 10/27/17 10/27/17 10/28/17 08:00 16:00 00:00 Intake Total 0 ml Balance 0 ml Assessment & Plan Problem List: (1) Adjustment disorder with mixed disturbance of emotions and conduct ICD Codes: F43.25 - Adjustment disorder with mixed disturbance of emotions and conduct Assessment & Plan Patient this time noted to have continued apparent psychotic distress but continues to refuse to elaborate on causing stressor which led to her recent suicide attempt as well as refusing to involve family in her care at this time which is concerning for her safety upon discharge. Patient reporting subjective dizziness with current medications although vital signs have been stable with no evidence of orthostatic hypotension as well as having somatic behavior around staff. Patient this time continues to require further psychiatric stabilization as patient continues to be at risk for self-harm due to current lability in mood and continued guardedness in regards to ongoing stressors surrounding her recent suicide attempt. We will continue to encourage patient to involve family discharge plan for safety. We will continue current treatment for now but may require continued increase in mirtazapine, continue to monitor mood and behavior. Discharge planning in progress. Justification for Cont. Inpt. At risk for further decompensation if at lower level of care Discharge Planning Patient return back to her residence when psychiatrically stable. Request HC Surrog/Guard Advoc?: No Chase Castano MD Oct 27, 2017 18:11
[2017-10-27 18:18] VITALS: BP 127/60; PULSE 68; RESP 18; TEMP 98.3; O2SAT 98
[2017-10-27] MEDS: ATORVASTATIN 20 MG TAB PO SCH (21:29)
[2017-10-27] MEDS: MIRTAZAPINE 15 MG TAB PO SCH (21:29)
[2017-10-28 05:44] VITALS: BP 125/67; PULSE 66; RESP 16; TEMP 98
[2017-10-28] MEDS: ARTIFICIAL TEARS OPTH SOLN 15 ML BTL EACH EYE PRN ×2 (07:29→16:08)
--- NOTE | 2017-10-28 08:14 | PD.TTN ---
Patient Problems 1. Discharge planning 2. Medication compliance 3. Knowledge deficit 4. Lack of coping skills Progress Toward Goals Provider Present: Dr. Michel Valle Provider Input: 10/27/17 Dr. Valle had his treatment team meeting to discuss patient's treatment plan, medication, and discharge plan. Patient is paranoid, guarded, continue with treatment Nurse(s) Input: 10/27/17 Patient's nurse reports patient is dramatic, tearful Psychiatric Counselors Present: Shirlene Panda [facility] Psych Therapist Input: 10/27/17 Patient presents watchful, guarded, pleasant, affect flat. Patient speech is clear and guarded Group Spec/RT/OT/HOFFMAN Present: DAVIDA Yee Group Spec/RT/OT/HOFFMAN Input: 10/27/17 Patient is pleasant, cooperative, no behavioral problem, attends selective groups Shirlene Panda [facility] Oct 28, 2017 08:14
[2017-10-28] MEDS: LISINOPRIL 20 MG TAB PO SCH (08:48)
[2017-10-28] MEDS: QUEtiapine FUMARATE 25 MG TAB PO SCH ×2 (08:49→21:01)
[2017-10-28] MEDS: REMOVE OLD PATCH T-DERMAL SCH (08:49)
[2017-10-28] MEDS: BACITRACIN TOP OINT 15 GM TUBE TOPICAL SCH ×2 (08:49→21:02)
[2017-10-28 09:30] VITALS: BP 159/96; PULSE 79; RESP 18; TEMP 98; O2SAT 95
--- NOTE | 2017-10-28 17:27 | HHI.PYPN ---
Subjective Chief Complaint: Self-injurious behavior Remarks Patient seen for follow, chart reviewed. Discussion nursing staff reported the patient it has been compliant with medication and less paranoid and participating groups. Patient was found family on unit noted B, cooperative. Patient was notably less anxious, states continues to feel a little dizzy but vital signs have been stable. Patient states she is eating and drinking well contending groups, continues to 90 suicide ideation at this time and states has been visited by family recently her and her sister and continued to be reluctant to allow him to be involved in her discharge planning but then later agreed toward end of interview. Patient states that she regrets having had a recent suicide attempt stating that she would never do this again states that her reasons to live are for her children her and her family. Patient continues to have some paranoia regards to family being involved in her care. Review of Systems Except as stated in HPI: all other systems reviewed are Neg Mental Status Examination Appearance: Appropriate Consciousness: Alert Orientation: x4 Motor Activity: Normal gait Speech: Unremarkable Language: Adequate Fund of Knowledge: Adequate Attention and Concentration: Adequate Memory: Unremarkable Mood: Anxious (Less so today) Affect: Irritable, Sad, Anxious (Less so today) Thought Process & Associations: Intact, Logical, Linear Thought Content: Appropriate Hallucination Type: None Delusion Type: Paranoid (Lessening) Suicidal Ideation: No Suicidal Plan: No Suicidal Intention: No Homicidal Ideation: No Homicidal Plan: No Homicidal Intention: No Insight: Fair Judgment: Impulsive Results Vitals/IOs Vital Signs Date Time Temp Pulse Resp B/P (MAP) Pulse Ox O2 Delivery O2 Flow Rate FiO2 10/28/17 09:30 98.0 79 18 159/96 (117) 95 Intake and Output 10/28/17 10/28/17 10/28/17 07:59 15:59 23:59 Intake Total 870 ml Balance 870 ml Assessment & Plan Problem List: (1) Adjustment disorder with mixed disturbance of emotions and conduct ICD Codes: F43.25 - Adjustment disorder with mixed disturbance of emotions and conduct Assessment & Plan Patient this time notably with improvement in mood, reporting less anxiety as well as reporting less depressive mood and denying any suicide ideations at this time. Patient also noted to be less paranoid on the unit as well as during interview. Patient continues to be reluctant with involving family specifically her and sister did communicated with treatment team and also to be able to have involved in discharge planning. Patient did agree to have treatment team to medicate with patient's Jeremy Jones . Collateral formation pending. We will continue current treatment. We will continue to monitor mood and behavior. Patient appears to be improving less paranoid improved mood. Discharge planning in progress. Justification for Cont. Inpt. At risk of further decompensation a lower level of care. Discharge Planning Patient return back to her residence when psychiatrically stable. Request HC Surrog/Guard Advoc?: No Chase Castano MD Oct 28, 2017 17:27
[2017-10-28 17:54] VITALS: BP 131/66; PULSE 72; RESP 18; TEMP 98.5; O2SAT 98
[2017-10-28] MEDS: MIRTAZAPINE 15 MG TAB PO SCH (21:01)
[2017-10-28] MEDS: ATORVASTATIN 20 MG TAB PO SCH (21:01)
[2017-10-28] MEDS: diphenhydrAMINE HCL 25 MG CAP PO PRN (21:02)
[2017-10-29 05:53] VITALS: BP 168/72; PULSE 68; RESP 18; TEMP 97.5; O2SAT 99
[2017-10-29] MEDS: QUEtiapine FUMARATE 25 MG TAB PO SCH (08:32)
[2017-10-29] MEDS: LISINOPRIL 20 MG TAB PO SCH (08:33)
[2017-10-29] MEDS: BACITRACIN TOP OINT 15 GM TUBE TOPICAL SCH (08:33)
[2017-10-29] MEDS: REMOVE OLD PATCH T-DERMAL SCH ×2 (08:38→08:39)
[2017-10-29] MEDS ORDERED: QC B500O TOPICAL (12:23)
[2017-10-29] MEDS ORDERED: MIRT30TA PO (12:23)
[2017-10-29] MEDS ORDERED: SERO25TA PO (12:23)
[2017-10-29] MEDS ORDERED: LISI-515 PO (12:23)
[2017-10-29] MEDS ORDERED: METH2.5T PO (12:23)
[2017-10-29] MEDS ORDERED: ATOR20TA15 PO (12:23)
--- NOTE | 2017-10-29 12:24 | HHI.DS ---
Psychiatry Discharge Summary Inpatient Psychiatric care?: Yes Advance Directive: No Mental Health AdvanceDirective: No Health Care Proxy: No Admission Admission Date October 20, 2017 at 13:37 Admission Diagnosis: (1) Adjustment disorder with mixed disturbance of emotions and conduct ICD Code: F43.25 - Adjustment disorder with mixed disturbance of emotions and conduct Brief History Ms. Jones is a 71-year-old female with no known past psychiatric history who presents under a Wong act by [facility]'s office alleging that the patient sustained self-inflicted lacerations on her bilateral wrists. Patient allegedly told the officer that she wanted to . Reviewing the electronic medical record, it appears this is patient's first visit to [place]. Patient seen and examined. Chart reviewed. Case discussed with nursing staff. On my examination today, the patient relates that she self injured because "I wanted to ." Main stressor appears to be conflict with her [id number]. Apparently, some youthful indiscretion by the patient was discovered by [id number] who has been using it against the patient by spreading it amongst the family. Patient denies any ongoing suicidal ideation presently, although it is unclear whether she is reliable to contract for safety. She denies any low mood, denies any anhedonia, denies any associated depressive symptoms except she does say that her sleep and appetite are poor. Affect is somewhat dysphoric, and I wonder if the patient is under reporting symptoms. I can elicit no hypomanic or manic symptoms. She denies any audiovisual hallucinations, and I can elicit no delusional material. Remainder of the psychiatric ROS is negative. No acute physical complaints. Past psychiatric history: Patient denies a history of psychiatric diagnosis. She denies a history of inpatient or outpatient psychiatric treatment. She denies a history of suicide attempts. Family history: Patient denies any family history of mental illness or suicide. Chemical dependency history: Patient denies any abuse of drugs or alcohol. Social history: Patient lives with her . She has a son and grandchildren. She has 8 grade education. 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 She denies any history. Denies any legal history. Denies any access to guns or firearms. Somewhat worship. Denies any history of abuse or mistreatment. Tobacco Use In Past 30 Days: No Tobacco Past 30 Days Alcohol Use: Never Hospital Course Patient is a 71-year-old woman, domiciled with , with no formal past psychiatric history, no previous psychiatric admissions, no previous suicide attempts, with a past medical history significant for rheumatoid arthritis, hypertension, hyperlipidemia who presents under a Wong act by [facility]'s office alleging that the patient sustained self- inflicted lacerations on her bilateral wrists. Patient allegedly told the officer that she wanted to which patient was admitted to the inpatient psychiatry on a voluntary basis for further evaluation and management. Patient was started on mirtazapine and titrated to 30mg at bedtime, and started on quetiapine and titrated to 25mg PO BID. She was also continued on medication regimen for chronic medical illnesses. Patient tolerated medications well with some subjective dizziness when started on quetiapine but tolerated well with no evidence of orthostatic hypotension and vitals stable throughout admission. Patient noted to start having improvement in mood, less anxiety and depressed mood, decrease in paranoia without any other psychotic symptoms noted and denied SI or HI. Patient maintained adequate personal hygiene and caring for self, improved appetite and participated in groups and activities. Discussion with patient's over the phone extensively which he felt patient was at baseline with no safety concerns of patient returning back home and would be supervising and supportive of patient continuing current treatment regimen as well as outpatient follow up for continuity of care. Recommendations were provided to patient and son to continue treatment and follow up appointments for continuity of care. Patient agreed to return back to her home with her . Patient has maximized benefit from this inpatient psychiatric hospital stay and will be [facility] with follow-up as arranged by counselor. Patient advised to call 911 or go nearest ED in case of emergency. Patient agreed with plan. Results Blood Pressure 168 / 72 Vital Signs Date Time Temp Pulse Resp B/P (MAP) Pulse Ox O2 Delivery O2 Flow Rate FiO2 10/29/17 05:53 97.5 68 18 168/72 (104) 99 Laboratory Results Test 10/25/17 07:10 Cholesterol Level 162 MG/DL (120-200) HDL Cholesterol 77.0 MG/DL (40.0-60.0) Hemoglobin A1c 6.0 % (4.3-6.0) LDL Cholesterol 59 MG/DL (0-99) Triglycerides Level 129 MG/DL (42-150) Summary of Procedures None Pending results at discharge: No Medications # of Antipsychotic meds at D/C: 1 Approp Antipsych med options 1 - Minimum of three failed multiple trials of monotherapy. 2 - Documented plan to taper to monotherapy due to previous use of multiple meds OR cross-taper in progress at D/C. 3 - Documentation of augmentation of Clozapine. 4 - Justification other than those listed in allowable values 1-3, document here : Discharge Discharge Date: Oct 29, 2017 Discharge Diagnosis: (1) Adjustment disorder with mixed disturbance of emotions and conduct ICD Code: F43.25 - Adjustment disorder with mixed disturbance of emotions and conduct Pt Condition on Discharge: Stable Discharge Disposition: Discharge Home Discharge Instructions Diet Instructions: As Tolerated, No Restrictions Activities you can perform: Regular-No Restrictions Discharge Time > 30 minutes Mental Status Examination Appearance: Appropriate Consciousness: Alert Orientation: x4 Motor Activity: Normal gait Speech: Unremarkable Language: Adequate Fund of Knowledge: Adequate Attention and Concentration: Adequate Memory: Unremarkable Mood: Appropriate Affect: Appropriate Thought Process & Associations: Intact, Logical, Linear Thought Content: Appropriate Hallucination Type: None Delusion Type: None Suicidal Ideation: No Suicidal Plan: No Suicidal Intention: No Homicidal Ideation: No Homicidal Plan: No Homicidal Intention: No Insight: Fair Judgment: Impulsive Discharge/Advance Care Plan Health Problems: (1) Adjustment disorder with mixed disturbance of emotions and conduct Goals to promote your health * To prevent worsening of your condition and complications * To maintain your health at the optimal level Directions to meet your goals Take your medications as prescribed Follow your dietary instruction Follow activity as directed Keep your appointments as scheduled Take your immunizations and boosters as scheduled If your symptoms worsen call your PCP, if no PCP go to Urgent Care Center or Emergency Room For 16/12 questions related to your inpatient stay or results of tests pending at discharge, please contact Dr. Chase Castano at Smoking is Dangerous to Your Health. Avoid second hand smoking Chase Castano MD Oct 29, 2017 12:24
--- NOTE | 2017-10-29 15:08 | PD.TTN ---
Patient Problems 1. Discharge planning 2. Medication compliance 3. Knowledge deficit 4. Lack of coping skills Progress Toward Goals Provider Present: Dr. Michel Valle Provider Input: 10/27/17 Dr. Valle had his treatment team meeting to discuss patient's treatment plan, medication, and discharge plan. Patient is paranoid, guarded, continue with treatment 10/29/17 Patient is less anxious will be discharged home today. Nurse(s) Input: 10/27/17 Patient's nurse reports patient is dramatic, tearful 10/29/17 Patient's nurse reports patient confused, no insight, speech clear. Medication compliant Psychiatric Counselors Present: Shirlene Panda [facility] Psych Therapist Input: 10/27/17 Patient presents watchful, guarded, pleasant, affect flat. Patient speech is clear and guarded 10/29/17 Patient presents childlike, depressed, cooperative but guard, apprehensive, tearful, affect labile. speech was clear, circumstranial. Group Spec/RT/OT/HOFFMAN Present: DAVIDA Yee Group Spec/RT/OT/HOFFMAN Input: 10/27/17 Patient is pleasant, cooperative, no behavioral problem, attends selective groups 10/29/17 Patient will only go to exercise group can not tolerate other groups. Shirlene Panda [facility] Oct 29, 2017 15:08
== END 2017-10-29 15:55 | disposition home or self-care (01) | DRG 882 ==
LOC: NEPJ 08:33 → NEDA 13:37 → H260 17:06
PROVIDERS: ADMIT Psychiatry & Neurology Psychiatry; ATTEND Student in an Organized Health Care Education/Training Program
DX: F43.25 Adjustment disorder with mixed disturbance of emotions and conduct (principal); R45.851 Suicidal ideations; E11.9 Type 2 diabetes mellitus without complications; I10 Essential (primary) hypertension; E78.00 Pure hypercholesterolemia, unspecified; M06.9 Rheumatoid arthritis, unspecified; F32.9 Major depressive disorder, single episode, unspecified; F41.9 Anxiety disorder, unspecified; G47.00 Insomnia, unspecified
CPT/HCPCS: 80048; 80053; 80061; 80307; 81001; 83036; 84443; 85025; 90471; 90714; 93005; J8610